=== PATIENT | female | born 1980 | race Caucasian/White ===

== ENCOUNTER 2017-01-26 15:40 | Inpatient (IN) | payer OTHER ==
[~2017-01-26] VITALS: Ht 157.5 cm; Wt 93.2 kg
[2017-01-27 12:21] VITALS: Ht 157.5 cm; Wt 93.2 kg
[2017-01-27] MEDS ORDERED: PNV1TAB.2 PO (12:29)
[2017-01-27] MEDS ORDERED: MINERAL OIL LIGHT 10 ML VIAL TOP ONE (12:30)
[2017-01-27] MEDS ORDERED: CARBOPROST 250 MCG INJ IM PRN (12:30)
[2017-01-27] MEDS ORDERED: MISOPROSTOL 200 MCG TAB PR PRN (12:30)
[2017-01-27] MEDS ORDERED: OXYTOCIN 30 UNITS/LR 500 ML IV SCH ×2 (12:30)
[2017-01-27] MEDS ORDERED: IBUPROFEN 600 MG TAB PO PRN (12:30)
[2017-01-27] MEDS ORDERED: METHYLERGONOVINE 0.2 MG INJ IM PRN (12:30)
[2017-01-27] MEDS ORDERED: OXYTOCIN 30 UNITS/LR 500 ML IV PRN (12:30)
[2017-01-27] MEDS ORDERED: LIDOCAINE 1% (MPF) 30 ML INJ INJ PRN (12:30)
[2017-01-27] MEDS: LACTATED RINGER'S 1,000 ML IV SCH ×2 (12:51→18:47)
[2017-01-27 13:10] LABS: ABNORMAL IP MESSAGE 1; BASOPHILS % 0.2 % (0.0-2.0); EOSINOPHILS # 0.1 10^3/ul (0.0-0.5); EOSINOPHILS % 0.5 % (0.0-7.0); HEMATOCRIT 32.3 % (37.0-47.0); HEMOGLOBIN 10.9 g/dl (12.0-16.0); LYMPHOCYTES # 1.5 10^3/ul (0.8-2.9); LYMPHOCYTES % 15.5 % (15.0-51.0); MEAN CORPUSCULAR HEMOGLOBIN 29.3 pg (29.0-33.0); MEAN CORPUSCULAR HGB CONC 33.7 g/dl (32.0-37.0); MEAN CORPUSCULAR VOLUME 86.8 fl (82.0-101.0); MEAN PLATELET VOLUME 13.4 fl (7.4-10.4); MONOCYTE # 0.6 10^3/ul (0.3-0.9); MONOCYTES % 6.6 % (0.0-11.0); NEUTROPHIL # 7.3 10^3/ul (1.6-7.5); NEUTROPHILS % 76.4 % (39.0-77.0); PLATELET COUNT 132 10^3/UL (140-415); RED BLOOD COUNT 3.72 10^6/ul (4.20-5.40); RED CELL DISTRIBUTION WIDTH 14.2 % (11.5-14.5); WHITE BLOOD COUNT 9.6 10^3/ul (4.8-10.8)
[2017-01-27 13:20] LABS: POSITIVE DIFF @See below
[2017-01-27] MEDS ORDERED: DINOPROSTONE 10 MG VAG SUPP VAG ONE (14:00)
[2017-01-27 14:03] LABS: INR 0.92; PROTIME 12.4 Sec (11.9-14.9)
[2017-01-27 14:04] LABS: PARTIAL THROMBOPLASTIN TIME 25.8 Sec (25.0-35.0)
--- NOTE | 2017-01-27 17:14 | RADRPT ---
PROCEDURE: US OB. CLINICAL INDICATION: Macrosomia. TECHNIQUE: Multiple sonographic images of the pelvis were obtained. Transabdominal imaging only w as performed. The images were reviewed on a PACS workstation. COMPARISON: No prior studies are available for comparison. FINDINGS: There is a single living intrauterine gestation in cephalic position. There is an anterior placenta. There is no evidence of previa. Adequate amnionic fluid is demonstrated. Active cardiac motion is seen at 133 beats per minute. The biparietal diameter is 9.77 cm. The head circumference is 34.57 cm. The abdominal circumference is 36.3 cm. The femur length is 7.58 cm. Consistent with: 14-fdul-2-day gestation Estimated weight is 3918 plus or minus 580 8 g. The head circumference to abdominal circumference ratio is 0.95 and the femur length to BPD ratio is 77.52 both well within the range of normal. IMPRESSION: 1. Single living intrauterine gestation in cephalic position with a mean gestational age by ultraso und of 39 weeks 5 days plus or minus 19 days with estimated date of delivery of 01/29/2017 by ultras ound criteria. RPTAT: [facility] Physician Nubia Date Time Electronically viewed and signed by Physician Nubia on 01/27/2017 17:14 /
--- NOTE | 2017-01-27 23:18 | HP ---
Date/Time of Note Date/Time of Note DATE: 01/27/17 TIME: 23:12 OB - History Hx of Present Free Text/Dictation 36 y.o A1(sab) [id number] here for induction VE 1/40%/-3 patient was non comliant , no 3hr gtt done FBS abd 2hr PPBS HbA1c nlagbs neg Chief Complaint: induction Estimated Due Date: Jan 29, 2017 : 3 Para: 1 Spontaneous : 1 Therapeutic : 0 Care: Limited Care Ultrasounds: Normal mid trimester US Medical Complications: None Past Family/Social History * Past Medical, Surgical, Family and Obstetric Histories reviewed from chart. Blood Type: A+ Rubella: immune RPR/VDRL: Negative GBS Status: Negative HBsAG: Negative OB Admission Exam Physical Exam HEENT: WNL Heart: Rhythm Normal Lungs: Clear, Equal Abdomen: WNL Extremities: Normal Reflexes: Normal Cervical Dilatation: 1cm Effacement: 50% Station: -3 Membranes: Intact Amniotic Fluid: Unevaluable Heart Rate: 140's Accelerations: Accelerations Present Decelerations: No Decelerations Varibility: Moderate Contractions on Admission: >10 Minutes Apart Intensity: Mild Last 72 hours Lab Results CBC & BMP 01/27/17 12:50 OB Assessment/Plan Reason for admission: induction of labor Other Assessment: [id number] Plan: Induction Induction Method: per Misoprostol Protocol MAYA FUENTES MD Jan 27, 2017 23:18
[2017-01-28] MEDS: BUTORPHANOL 2 MG INJ IV PRN ×2 (01:39→05:53)
[2017-01-28] MEDS: LACTATED RINGER'S 1,000 ML IV SCH ×3 (03:17→13:32)
[2017-01-28] MEDS ORDERED: OXYTOCIN 30 UNITS/LR 500 ML IV SCH (06:00)
[2017-01-28] MEDS ORDERED: FENTAnyl 2MCG/ML-ROPIV 0.2% 100 ML ONE (13:25)
[2017-01-28] MEDS ORDERED: ONDANSETRON 4 MG INJ IV PRN ×2 (14:30→15:30)
[2017-01-28] MEDS ORDERED: ONDANSETRON 4 MG INJ ONE (14:30)
[2017-01-28] MEDS ORDERED: NALOXONE (0.4 MG/ML) INJ IV PRN (15:30)
[2017-01-28] MEDS ORDERED: DIPHENHYDRAMINE 50 MG INJ IV PRN (15:30)
[2017-01-28] MEDS: FENTAnyl 2MCG/ML-ROPIV 0.2% 100 ML BAG EPI SCH ×2 (17:03→18:04)
--- NOTE | 2017-01-28 18:49 | LDN ---
Date/Time of Note Date/Time of Note DATE: 01/28/17 TIME: 18:46 Delivery Summary Weeks of Gestation [id number] Placenta Delivered: Spontaneously Meconium: none Episiotomy: Yes Indication for episiotomy macrosomia expected Perineal laceration: 0 Laceration repair: 00ch gut Anesthesia type: Epidural Estimated blood loss: 200 Sponge & Needle done & correct: Yes All needle counts correct: Yes Any foreign bodies felt in the: No Problems: Delivery Information Sex Infant Sex: male Apgars 1 Minute: 8 5 Minute: 9 Suctioning Nose & mouth suctioned at yandy: Yes Delee suction performed: Yes Umbilical Cord Umbilical cord with: 3 Vessels Cord presentations: nuchal cord Nuchal cord present X: 1 Cord Blood was obtained: Yes Mother & Baby Disposition Disposition Mom & Baby to Maternity; Good: Yes Mom transferred to: Other Baby to NICU: No () MAYA FUENTES MD Jan 28, 2017 18:49
[2017-01-28] MEDS ORDERED: OXYCODONE/ASPIRIN (4.88/325) TAB PO ONE (20:30)
[2017-01-28 20:45] VITALS: BP 131/71; RESP 18
[2017-01-28 21:00] VITALS: BP 126/70; RESP 18
[2017-01-28] MEDS ORDERED: CARBOPROST 250 MCG INJ IM PRN (21:00)
[2017-01-28] MEDS ORDERED: OXYTOCIN 30 UNITS/LR 500 ML IV PRN (21:00)
[2017-01-28] MEDS ORDERED: METHYLERGONOVINE 0.2 MG INJ IM PRN (21:00)
[2017-01-28] MEDS ORDERED: OXYCODONE/ASPIRIN (4.88/325) TAB PO PRN ×2 (21:00)
[2017-01-28] MEDS ORDERED: MISOPROSTOL 200 MCG TAB PR PRN (21:00)
[2017-01-28] MEDS ORDERED: ZOLPIDEM 5 MG TAB PO PRN (21:00)
[2017-01-28] MEDS: SENNA/DOCUSATE NA (8.6MG/50MG) TAB PO SCH (21:40)
[2017-01-28] MEDS: BENZOCAINE 20% 56 ML SPRAY TOP PRN (21:40)
[2017-01-28] MEDS: WITCH HAZEL/GLYCERIN PAD PR PRN (21:40)
[2017-01-28] MEDS: LANOLIN 7 GM TUBE TOP PRN (21:40)
[2017-01-29] VITALS: BP 115/57; RESP 18
[2017-01-29] MEDS: IBUPROFEN 600 MG TAB PO SCH ×4 (00:17→18:00)
[2017-01-29 04:00] VITALS: BP 108/68; RESP 18
[2017-01-29 08:45] VITALS: BP 110/59; PULSE 76; RESP 18
[2017-01-29] MEDS: SENNA/DOCUSATE NA (8.6MG/50MG) TAB PO SCH ×2 (08:47→21:57)
[2017-01-29] MEDS: WITCH HAZEL/GLYCERIN PAD PR PRN ×2 (08:47→21:57)
[2017-01-29] MEDS: BENZOCAINE 20% 56 ML SPRAY TOP PRN ×2 (08:47→21:58)
[2017-01-29] MEDS ORDERED: INFLUENZA VIRUS VACCINE 0.5 ML (DISPENSING) IM* ONE (09:00)
--- NOTE | 2017-01-29 09:53 | PN ---
Date/Time of Note Date/Time of Note DATE: 01/29/17 TIME: 09:49 OB Subjective Subjective Subjective no c/o OB Objective Objective Objective vss afebrile fundus firm lochia min ext no sig edema or calf tenderness OB Assessment/Plan Other Assessment: ststus post normal vaginal delivery Other plan: d/s home in am MAYA FUENTES MD Jan 29, 2017 09:53
[2017-01-29 10:41] LABS: ABNORMAL IP MESSAGE 1; BASOPHILS % 0.2 % (0.0-2.0); EOSINOPHILS # 0.1 10^3/ul (0.0-0.5); EOSINOPHILS % 0.8 % (0.0-7.0); HEMATOCRIT 28.3 % (37.0-47.0); HEMOGLOBIN 9.4 g/dl (12.0-16.0); LYMPHOCYTES # 1.7 10^3/ul (0.8-2.9); LYMPHOCYTES % 13.1 % (15.0-51.0); MEAN CORPUSCULAR HEMOGLOBIN 29.5 pg (29.0-33.0); MEAN CORPUSCULAR HGB CONC 33.2 g/dl (32.0-37.0); MEAN CORPUSCULAR VOLUME 88.7 fl (82.0-101.0); MEAN PLATELET VOLUME 13.7 fl (7.4-10.4); MONOCYTE # 0.9 10^3/ul (0.3-0.9); MONOCYTES % 6.7 % (0.0-11.0); NEUTROPHILS % 78.8 % (39.0-77.0); PLATELET COUNT 115 10^3/UL (140-415); RED BLOOD COUNT 3.19 10^6/ul (4.20-5.40); RED CELL DISTRIBUTION WIDTH 14.5 % (11.5-14.5); WHITE BLOOD COUNT 12.7 10^3/ul (4.8-10.8)
[2017-01-29 10:43] LABS: POSITIVE DIFF @See below
[2017-01-29 14:15] VITALS: BP 114/66; RESP 16
[2017-01-29] MEDS: LANOLIN 7 GM TUBE TOP PRN (15:58)
[2017-01-29 16:00] VITALS: BP 108/60; PULSE 83; RESP 18
[2017-01-29 19:35] VITALS: BP 110/64; PULSE 80; RESP 18
[2017-01-30] MEDS: IBUPROFEN 600 MG TAB PO SCH ×3 (00:35→11:58)
[2017-01-30 04:10] VITALS: BP 121/58; PULSE 76; RESP 18
[2017-01-30] MEDS ORDERED: VITAMIN A & D 5 GM OINT PACKET TOP ONE (07:45)
[2017-01-30] MEDS ORDERED: DIPHTH/TET/ACEL PERTUSS (ADULT) 0.5 ML VIAL IM* ONE (09:00)
[2017-01-30] MEDS: SENNA/DOCUSATE NA (8.6MG/50MG) TAB PO SCH (09:24)
--- NOTE | 2017-01-30 15:07 | PD.PPDC ---
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
--- NOTE | 2017-01-30 15:11 | DS ---
Date/Time of Note Date/Time of Note DATE: 01/30/17 TIME: 15:09 Obstetrical Discharge Record Final Diagnosis Final Diagnosis: Term delivered Vaginal Delivery Obstetrical Delivery: Laceration, Repaired Complications Induction: Yes Rupture of Membranes: No Condition on Discharge Physical Assessment Last Vitals: vss afebrile Voiding: Yes Bowel Movement: Yes Breast: Soft, non-tender Fundus: Firm Calf Tenderness: No Patient Condition: Stable MAYA FUENTES MD Jan 30, 2017 15:11
== END 2017-01-30 15:30 | disposition home or self-care (01) | DRG 775 ==
LOC: L-D 01-27 11:18 → PP1 01-28 20:51
PROVIDERS: ADMIT Obstetrics & Gynecology; ATTEND Obstetrics & Gynecology
PROC: 10E0XZZ Delivery of Products of Conception, External Approach (ICD-10-PCS; principal; 2017-01-28)
PROC: 3E033VJ Introduction of Other Hormone into Peripheral Vein, Percutaneous Approach (ICD-10-PCS; 2017-01-28)
DX: O69.81X0 Labor and delivery complicated by cord around neck, without compression, not applicable or unspecified (principal); Z37.0 Single live birth; Z3A.39 39 weeks gestation of pregnancy
CPT/HCPCS: 62319; 76815; 85025; 85610; 85730; 86592; 86900; 86901; 87340; 90715; J0595; J2405; J2590; J3010; J7120